=== PATIENT | male | born 1975 | race Caucasian/White ===

== ENCOUNTER 2018-09-04 07:19 | Emergency (ER) | payer MEDICAID, OTHER ==
[~2018-09-04] VITALS: Ht 157.5 cm; Wt 113.4 kg
[2018-09-04 07:24] VITALS: BP 139/82
--- NOTE | 2018-09-04 07:33 | NUR ---
PATIENT AMBUALTED TO BED 6 AT THIS TIME.
--- NOTE | 2018-09-04 07:44 | NUR ---
PT PRESENTS TO ED WITH C/O RIGHT EAR PAIN AND DECREASED HEARING IN RIGHT EAR X THIS AM. PT STATES, "I WAS CLEANING THE EAR WITH A Q-TIP AND A NOTICED BLOOD." NO BLOODY DRAINAGE OBSERVED; PT VERBALIZED PAIN IS 7/10 AT THIS TIME. DENIES ANY PREVIOUS MEDICAL HX. ERMD TO EVALUATE PT.
[2018-09-04 08:12] VITALS: BP 139/82
--- NOTE | 2018-09-04 08:12 | NUR ---
Patient discharged with v/s stable. Written and verbal after care instructions given and explained. Patient alert, oriented and verbalized understanding of instructions. Ambulatory with steady gait. All questions addressed prior to discharge. ID band removed. Patient advised to follow up with PMD. Rx of Motrin and Cortisporin otic susp. given. Patient educated on indication of medication including possible reaction and side effects. Opportunity to ask questions provided and answered.
== END 2018-09-04 08:12 | disposition home or self-care (01) ==
LOC: MED 07:19
DX: H60.91 Unspecified otitis externa, right ear (principal)
CPT/HCPCS: 99283

== ENCOUNTER 2018-09-11 10:20 | Emergency (ER) | payer MEDICAID ==
[~2018-09-11] VITALS: Ht 157.5 cm; Wt 113.4 kg
[2018-09-11 10:21] VITALS: BP 127/84
--- NOTE | 2018-09-11 10:30 | NUR ---
Patient ambulated to bed 11. RN evaluating patient at bedside.
--- NOTE | 2018-09-11 10:38 | NUR ---
Dr. Valera evaluating patient at bedside.
--- NOTE | 2018-09-11 10:41 | NUR ---
Note taliareza in EDM - 09/11/18 at 1049 by MEDDI 42 Y/O Male C/O RIGHT EAR PAIN FOR 1 WEEK SINCE LAST VISIT 09/04/18. PATIENT STATES THE PAIN IS A 5/10. DENIES RECENT INJURY. NO NOTABLE EXUDATE. MED HX: NONE PMH: NONE
--- NOTE | 2018-09-11 10:50 | NUR ---
42 Y/O Male C/O RIGHT EAR PAIN FOR 1 WEEK SINCE LAST VISIT 09/04/18. PATIENT STATES THE PAIN IS A 5/10. DENIES RECENT INJURY. NO NOTABLE OUTER EAR EXUDATE. MED HX: NONE PMH: NONE
--- NOTE | 2018-09-11 11:03 | NUR ---
Patient discharged with v/s stable. Written and verbal after care instructions given and explained. Patient alert, oriented and verbalized understanding of instructions. Ambulatory with steady gait. All questions addressed prior to discharge. ID band removed. Patient advised to follow up with PMD. Rx of tramadol given. Patient educated on indication of medication including possible reaction and side effects. Opportunity to ask questions provided and answered. continue with corticosporin ear gtts and f/u with pmd within week
[2018-09-11 11:04] VITALS: BP 132/84
== END 2018-09-11 11:02 | disposition home or self-care (01) ==
LOC: MED 10:20
DX: H60.91 Unspecified otitis externa, right ear (principal); R03.0 Elevated blood-pressure reading, without diagnosis of hypertension
CPT/HCPCS: 99283

== ENCOUNTER 2018-11-16 20:27 | Emergency (ER) | payer MEDICAID, OTHER ==
[~2018-11-16] VITALS: Ht 162.6 cm; Wt 108.9 kg
[2018-11-16 20:30] VITALS: BP 130/79
[2018-11-16] MEDS ORDERED: KETOROLAC 30 MG/ML VIAL IM ONE (21:00)
[2018-11-16] MEDS ORDERED: DIAZEPAM 5 MG TAB PO ONE (21:00)
[2018-11-16 21:45] VITALS: BP 126/73
== END 2018-11-16 21:45 | disposition home or self-care (01) ==
LOC: MED 20:27
DX: M75.81 Other shoulder lesions, right shoulder (principal)
CPT/HCPCS: 73030; 96372; 99283; J1885; Q0092

== ENCOUNTER 2021-06-27 12:20 | Emergency (ER) | payer MEDICAID, OTHER ==
[~2021-06-27] VITALS: Ht 165.1 cm; Wt 108.9 kg
[2021-06-27 12:46] VITALS: BP 143/93
--- NOTE | 2021-06-27 13:16 | NUR ---
45 y/o male bib self for c/o right foot pain x 2 weeks. Patient has slight swelling. Patient denies any injury or trauma. Medical History: Gout NKDA
--- NOTE | 2021-06-27 13:52 | NUR ---
PA Romero at bedside evaluating patient.
[2021-06-27] MEDS ORDERED: KETOROLAC 30 MG/ML VIAL IM ONE (13:55)
--- NOTE | 2021-06-27 14:22 | NUR ---
Radiology at bedside.
[2021-06-27] MEDS ORDERED: METH4TAB1 PO (15:45)
[2021-06-27] MEDS ORDERED: NAPR-54 PO (15:45)
[2021-06-27 15:53] VITALS: BP 133/84
--- NOTE | 2021-06-27 15:53 | NUR ---
Patient discharged with v/s stable. Written and verbal after care instructions given and explained. Patient alert, oriented and verbalized understanding of instructions. Ambulatory with steady gait. All questions addressed prior to discharge. ID band removed. Patient advised to follow up with PMD. Rx of methylprednisolone, naproxen (sent) given. Patient educated on indication of medication including possible reaction and side effects. Opportunity to ask questions provided and answered.
== END 2021-06-27 15:53 | disposition home or self-care (01) ==
LOC: MED 12:20
DX: M79.671 Pain in right foot (principal); R03.0 Elevated blood-pressure reading, without diagnosis of hypertension; Z79.899 Other long term (current) drug therapy
CPT/HCPCS: 29515; 73630; 96372; 99283; J1885

== ENCOUNTER 2021-09-27 06:25 | Emergency (ER) | payer MEDICAID, OTHER ==
[~2021-09-27] VITALS: Ht 157.5 cm; Wt 108.9 kg
[~2021-09-27 06:25] MED LIST: METH4TAB1 PO; NAPR-54 PO
[2021-09-27 06:34] VITALS: BP 140/90
--- NOTE | 2021-09-27 06:34 | NUR ---
TO BED AMBULATORY
--- NOTE | 2021-09-27 06:44 | NUR ---
RECEIVED IN BED 4 WITH C/O PAINFUL RASH TO LEFT CHEST. RED AREA NOTED WITH SEVERAL BLISTER LIKE SPOTS. PT STATES "I THINK IT MIGHT BE SHINGLES"
--- NOTE | 2021-09-27 06:50 | NUR ---
DR MARTÍNEZ AT BEDSIDE EXAMINING
[2021-09-27] MEDS ORDERED: ACYC400T14 PO (07:05)
[2021-09-27] MEDS ORDERED: KETOROLAC 30 MG/ML VIAL IM ONE (07:05)
[2021-09-27] MEDS ORDERED: KETOROLAC 30 MG/ML VIAL ONE (07:06)
[2021-09-27] MEDS ORDERED: NAPR-54 PO (07:07)
--- NOTE | 2021-09-27 07:25 | NUR ---
Patient discharged with v/s stable. Written and verbal after care instructions FOR SHINGLES given and explained. Patient alert, oriented and verbalized understanding of instructions. Ambulatory with steady gait. All questions addressed prior to discharge. ID band removed. Patient advised to follow up with PMD. Rx of ZOVIRAX AND NAPROXEN given. Opportunity to ask questions provided and answered.
== END 2021-09-27 07:25 | disposition home or self-care (01) ==
LOC: MED 06:25
DX: B02.9 Zoster without complications (principal)
CPT/HCPCS: 96372; 99283; J1885